=== PATIENT | female | born 1945 | race African-American/Black ===

== ENCOUNTER 2017-06-09 08:52 | Day surgery (SDC) | payer OTHER ==
[2017-06-01 12:51] VITALS: BMI 38.2
--- NOTE | 2017-06-09 07:51 | HP ---
Satellite [facility] - Chief Complaint Chief Complaint: right knee pain - Past Medical History Allergies/Adverse Reactions: Allergies Allergy/AdvReac Type Severity Reaction Status Date / Time No Known Allergies Allergy Verified 06/01/17 12:51 - Current Medications Current Medications: Home Medications Medication Instructions Recorded Aspirin [ASA -] 81 mg PO DAILY 06/01/17 Budesonide/Formeterol Fumarate 1 inh PO BID 06/01/17 [SYMBICORT 160/4.5mcg -] Carvedilol [Coreg] 6.25 mg PO BID 06/02/17 Meclizine HCl 25 mg PO ASDIR PRN 06/02/17 Naproxen 375 mg PO BID 06/02/17 Omeprazole 40 mg PO DAILY 06/02/17 Oxycodone HCl [Oxaydo] 7.5 mg PO BID 06/02/17 Pregabalin [Lyrica -] 75 mg PO BID 06/02/17 Simvastatin 20 mg PO HS 06/02/17 Satellite Physical Exam - Physical Examination General Appearance: Well Nourished, Well Developed, Alert & Oriented x3 ENT: Clear Lung: Normal air movement Heart: Regular rate & rhythm Extremities: Other (right knee- + swelling, + ttp medially, decr rom, nvi xrays show grade 4 medial djd) Neurological: Intact, Alert, Oriented Satellite Impression/Plan - Impression/Plan Impression: right knee medial djd Operative Procedure: right medial dennis ukr Date to be Performed: 06/09/17
[2017-06-09] MEDS ORDERED: CEFAZOLIN 2 GM in DEXTROSE 5%-WATER - 50 ML IVPB ONE (09:15)
[2017-06-09] MEDS ORDERED: TRANEXAMIC ACID 1000 MG/10 ML VIAL IVPUSH ONE (09:15)
[2017-06-09] MEDS ORDERED: CELECOXIB 200 MG CAPSULE PO ONE (09:15)
[2017-06-09] MEDS ORDERED: GABAPENTIN 300 MG CAPSULE (FP) PO ONE (09:15)
[2017-06-09] MEDS ORDERED: oxyCODONE HCL 10 MG SUSTAINED ACTING TABLET PO ONE (09:15)
[2017-06-09] MEDS ORDERED: ceFAZolin SODIUM 1 GM VIAL ONE (10:36)
[2017-06-09] MEDS ORDERED: THROMBIN (BOVINE) 5,000 UNIT VIAL TP ONE ×3 (10:36→12:52)
[2017-06-09] MEDS ORDERED: GELATIN, ABSORBABLE 100 EACH SPONGE TP ONE ×3 (10:36→12:52)
[2017-06-09] MEDS ORDERED: ROPIVICAINE 0.2%/MORPH PF/KETOROLAC - 51ML DISP.SYRINGE IA ONE ×3 (10:38→13:16)
[2017-06-09] MEDS ORDERED: DEXAMETHASONE SOD PHOSPHATE/PF 10 MG/ML SDV ONE (11:17)
[2017-06-09] MEDS ORDERED: MIDAZOLAM HCL 2 MG/2 ML SINGLE DOSE VIAL ONE (11:17)
[2017-06-09] MEDS ORDERED: BUPIVACAINE HCL/PF (5 MG/ML) 30 ML VIAL IJ ONE (11:17)
[2017-06-09] MEDS ORDERED: ONDANSETRON 4 MG/2 ML VIAL IVPUSH PRN (13:26)
[2017-06-09] MEDS ORDERED: MAG HYDROX/AL HYDROX/SIMETH 30 ML UNIT-DOSE CUP PO PRN (13:26)
[2017-06-09] MEDS ORDERED: MECLIZINE HCL 25 MG TABLET (FP) PO PRN (13:27)
[2017-06-09] MEDS ORDERED: LACTATED RINGERS SOLUTION 1,000 ML IV SCH (13:30)
--- NOTE | 2017-06-09 13:30 | OP ---
Operative Note - Note: Operative Date: 06/09/17 (araceli) Pre-Operative Diagnosis: right knee medial djd Operation: right medial dennis ukr Post-Operative Diagnosis: Same as Pre-op Surgeon: Rocael Jennings Gum Worker: Nayan Jarquin Anesthesiologist/BRIDGE EXPERT: Shan Patrick Anesthesia: Spinal, Local Specimens Removed: bone fragments Estimated Blood Loss (mls): 50 Operative Report Dictated: Yes
[2017-06-09] MEDS ORDERED: oxyCODONE HCL 5 MG TABLET PO PRN ×2 (13:59)
[2017-06-09] MEDS ORDERED: ACETAMINOPHEN 325 MG TABLET (FP) ONE (14:52)
[2017-06-09] MEDS: ACETAMINOPHEN 325 MG TABLET (FP) PO SCH ×2 (14:55→21:40)
--- NOTE | 2017-06-09 16:28 | SPEC ---
DATE OF OPERATION: 06/09/2017 PREOPERATIVE DIAGNOSIS: Degenerative joint disease, right knee. POSTOPERATIVE DIAGNOSIS: Degenerative joint disease, right knee. PROCEDURE: Right medial unicompartmental knee replacement with robotic-assisted navigation (MAKOplasty) and patelloplasty. SURGICAL ATTENDING: Rocael Jennings MD RETENTION SPECIALIST: ELAINE Harvey ANESTHESIA: Regional and spinal. CLOSURE: Medial unicompartmental JOSELUIS components with a 4 femur, 4 tibia, and a 9 polyethylene; No. 1 Vicryl, fascia; 0 and 2-0, subcutaneous; 3-0 Monocryl subcuticular with skin glue for skin; 4-0 undyed Vicryl for pin sites. ESTIMATED BLOOD LOSS: Negligible. COMPLICATIONS: None. CONDITION: To recovery in stable condition. DESCRIPTION OF OPERATIVE PROCEDURE: Patient was taken to the operating room on June 09, 2017. Spinal and regional anesthesia was administered by the anesthesiologist. IV Kefzol and TXA were administered prophylactically prior to the case. A well-padded pneumatic tourniquet was placed on the right proximal thigh. The right lower extremity was prepped and draped in the usual sterile fashion. A 6- to 8-cm longitudinal incision over the medial side of the patella from mid patella to the tibial tubercle was incised and was deepened using Bovie cautery. An arthrotomy was then made just medial to the patellar tendon and the patella. Subperiosteal dissection was done on the anteromedial proximal tibia all the way back to the MCL. Partial fat pad excision was performed, exposing the medial compartment. Checkpoint was malleable at both the femur and the tibia. Using 2 stab incisions in the femur 1 handbreadth above the patella on the femur and 2 stab incisions 1 handbreadth below the tibial tubercle on the tibia, 2 threaded pins were drilled in parallel fashion from anterior to posterior, going through the proximal cortex and engaging the 2nd but not through the 2nd cortex. To these threaded pins were fastened navigation rays, 1 on the femur and 1 on the tibia. The knee was then registered with the navigation device with the center of the rotation of the hip, medial and lateral malleoli, and multiple points both on the femur and on the tibia. Excellent registration of less than 0.5 mm was obtained on both to ensure adequate registration. The navigation device ensured us to "pop the bubbles" both on the femur and the tibia and that was performed and passed registration. The knee was then thoroughly inspected to remove all osteophytes both on the femur and the tibia. Also, osteophytes on the trochlea and on the surface of the patella were removed as well. The knee was then stressed with valgus stress at 0, 30, 60, 90, and 120 degrees of flexion. This propagated a looseness/tightness graft. The virtual positions of the components were then optimized to ensure an excellent graft. The tracking also was optimized by manipulating the virtual position to ensure that the femoral component articulated with the central portion of the tibial component. The robot was then brought into the field and was registered. The robot was used to bur the bone on both the femur and the tibia as to the specifications of the components. The trial components were then applied on both the femur and the tibia with an appropriate polyethylene insert. The knee was taken through a range of motion and found to have full extension, full flexion, with excellent stability. Stressing the graft revealed an excellent looseness/tightness graft with the trial components in place. The trial components were removed. The knee was thoroughly irrigated with a copious amount of antibiotic irrigation. The real components were then cemented in using modern generation cement techniques with antibiotic cement and pressurization. After the cement was hardened, the knee was thoroughly inspected to remove out all excess cement. The real polyethylene insert was then clipped into place. Range of motion and stability were again assessed to be as they were with the trials. At this time, the pins and the checkpoints were removed. The knee was again thoroughly irrigated. The arthrotomy was closed with No. 1 Vicryl, 0 and 2-0 subcutaneous, and 3-0 Monocryl subcuticular with skin glue for the skin, 4-0 undyed Vicryl for the pin sites. Sterile pressure dressing was placed over the knee. Patient awakened from anesthesia and transferred to recovery in stable condition. No complications. Estimated blood loss negligible. X-rays postoperatively revealed excellent position of the components. Liliya [id number]
[2017-06-09] MEDS: CEFAZOLIN 2 GM/D5W 2 GM/50 ML ML IVPB SCH (20:32)
[2017-06-09] MEDS: SENNOSIDES/DOCUSATE COMBO (SENNA PLUS) TABLET (UD) PO SCH (21:39)
[2017-06-09] MEDS: PREGABALIN 25 MG CAPSULE PO SCH (21:39)
[2017-06-09] MEDS: CARVEDILOL 6.25 MG TABLET (FP) PO SCH (21:40)
[2017-06-09] MEDS: oxyCODONE HCL 10 MG SUSTAINED ACTING TABLET PO SCH (21:41)
[2017-06-09] MEDS: BUDESONIDE/FORMETEROL FUMARATE 160/4.5 mcg INHALER IH SCH (21:41)
[2017-06-09] MEDS ORDERED: PATIENT'S OWN MEDICATION (NON-FORMULARY) (Simvastatin [Simvastatin] 20 MG) PO SCH (22:00)
[2017-06-09] MEDS ORDERED: ATORVASTATIN CA 10 MG TABLET (FP) PO SCH (22:00)
[2017-06-09] MEDS ORDERED: PREGABALIN 75 MG CAPSULE PO SCH (22:00)
[2017-06-09] MEDS ORDERED: GABAPENTIN 300 MG CAPSULE (FP) PO SCH (22:00)
[2017-06-10] MEDS: CEFAZOLIN 2 GM/D5W 2 GM/50 ML ML IVPB SCH (02:59)
[2017-06-10] MEDS: ACETAMINOPHEN 325 MG TABLET (FP) PO SCH ×2 (02:59→09:23)
[2017-06-10 06:37] VITALS: BP 124/57; PULSE 86; TEMP 98.1
--- NOTE | 2017-06-10 07:59 | PN ---
Progress Note (short form) - Note Progress Note: Ortho Pt seen and examined s/p right medial dennis ukr pod #1 Selected Entries 06/10/17 04:00 Temperature 98.1 F Pulse Rate 86 Respiratory 19 Rate Blood Pressure 124/57 dressing c/d/i, calf soft, nt rom0-90, nvi a/p PT dvt ppx pain control d/c home today f/u in 1 week
[2017-06-10] MEDS ORDERED: ASPIRIN 325 MG TABLET PO SCH (08:00)
--- NOTE | 2017-06-10 08:00 | DS ---
Physical Examination Vital Signs: Vital Signs Temperature 98.1 F 06/10/17 04:00 Pulse Rate 86 06/10/17 04:00 Respiratory Rate 19 06/10/17 04:00 Blood Pressure 124/57 06/10/17 04:00 O2 Sat by Pulse Oximetry (%) 96 06/10/17 06:36 Discharge Summary Reason For Visit: OSTEOARTHRITIS Procedures: Principal: s/p right medial dennis ukr Hospital Course: admitted for elective right medial dennis ukr, uneventful post-op, stable for d/c Condition: Good - Instructions Diet, Activity, Other Instructions: Post-op Instructions-Partial Knee Replacement Call the office for a follow-up appointment in 1 week - [phone] Aspirin 325mg daily for 6 weeks. Pain medication was sent into your pharmacy. Apply Graduated Compression Stockings (TEDs) to both lower extremities- remove daily for hygiene ONLY Apply Sequential Compression Device (SCDs) to both Lower extremities remove for PT and hygiene ONLY Apply cold packs to affected area for 15 minutes every 2 hours. Physical Therapist will come to your home for the first 5 days. You will be set up with outpatient PT at your first post-operative visit. Patient may ambulate as tolerated-encourage self care (at least every 2-3 hours while awake) with walker or cane Maintain Aquacel (waterproof) dressing to operative wound (will be removed by surgeon at first office visit) Shower with Aquacel dressing in place-if Aquacel integrity compromised, remove and apply dry sterile dressing and notify Orthopedist. DO NOT SHOWER unless Orthopedists approves without Aquacel dressing CONTACT THE OFFICE FOR ANY CHANGE IN YOUR CONDITION (for example-fever greater than 102 degrees, excessive bleeding from operative site, purulent drainage, severe swelling or pain) GO TO THE EMERGENCY ROOM IF THERE IS A MEDICAL EMERGENCY Knee Precautions: * Keep a rolled towel under affected heel while in bed or chair (to keep knee in extension) * Keep affected leg elevated except during mealtimes * DO NOT PLACE PILLOW UNDER AFFECTED KNEE * If you have any questions, please do not hesitate to call the office - . Referrals: Rocael Jennings MD [Staff Physician] - Disposition: VNS/HOME HEALTH CARE - Home Medications Comprehensive Discharge Medication List: Ambulatory Orders Aspirin [ASA -] 81 mg PO DAILY 06/01/17 Budesonide/Formeterol Fumarate [SYMBICORT 160/4.5mcg -] 1 inh PO BID 06/01/17 Carvedilol [Coreg] 6.25 mg PO BID 06/02/17 Meclizine HCl 25 mg PO ASDIR PRN 06/02/17 Naproxen 375 mg PO BID 06/02/17 Omeprazole 40 mg PO DAILY 06/02/17 Oxycodone HCl [Oxaydo] 7.5 mg PO BID 06/02/17 Pregabalin [Lyrica -] 75 mg PO BID 06/02/17 Simvastatin 20 mg PO HS 06/02/17 Ferrous Sulfate [Iron] 1 each PO DAILY 06/09/17
[2017-06-10] MEDS ORDERED: PT OWN MED DRAWER 7, Y5N ONE (09:04)
[2017-06-10] MEDS: BUDESONIDE/FORMETEROL FUMARATE 160/4.5 mcg INHALER IH SCH (09:21)
[2017-06-10] MEDS: CARVEDILOL 6.25 MG TABLET (FP) PO SCH (09:22)
[2017-06-10] MEDS: PREGABALIN 25 MG CAPSULE PO SCH (09:22)
[2017-06-10] MEDS: oxyCODONE HCL 10 MG SUSTAINED ACTING TABLET PO SCH (09:23)
[2017-06-10] MEDS: SENNOSIDES/DOCUSATE COMBO (SENNA PLUS) TABLET (UD) PO SCH (09:23)
[2017-06-10 09:34] LABS: HEMATOCRIT 40.6 % (32.4-45.2); HEMOGLOBIN 13.7 GM/dl (10.7-15.3); MCH 28.8 pg (25.7-33.7); MCHC 33.8 g/dl (32.0-36.0); MEAN CELL VOLUME 85.4 fl (80-96); MEAN PLT VOLUME 9.3 fl (7.5-11.1); PLATELET COUNT 283 K/MM3 (134-434); RBC 4.76 M/mm3 (3.60-5.2); RDW 13.5 % (11.6-15.6); WHITE BLOOD COUNT 10.7 K/mm3 (4.0-10.8)
[2017-06-10] MEDS ORDERED: PANTOPRAZOLE 40 MG TABLET (FP) PO SCH (10:00)
[2017-06-10] MEDS ORDERED: FERROUS SO4 325 MG TABLET (FP) PO SCH (10:00)
[2017-06-10] MEDS ORDERED: MULTIVITAMINS (DAILY MVI) TABLET (FP) PO SCH (10:00)
== END 2017-06-10 11:41 | disposition home health service (06) ==
LOC: FASU 08:52 → FM/S 09:15 → FASU 06-10 11:41
PROVIDERS: ATTEND Orthopaedic Surgery
PROC: 8E0YXBZ Computer Assisted Procedure of Lower Extremity (ICD-10-PCS; 2017-06-09)
PROC: 8E0Y0CZ Robotic Assisted Procedure of Lower Extremity, Open Approach (ICD-10-PCS; 2017-06-09)
PROC: 0SRC0L9 Replacement of Right Knee Joint with Medial Unicondylar Synthetic Substitute, Cemented, Open Approach (ICD-10-PCS; principal; 2017-06-09 11:00)
DX: M17.11 Unilateral primary osteoarthritis, right knee (principal)
CPT/HCPCS: 20985; 27446; C1776; S2900; 36415; 73560-TC-RT-FY; 85027; 94760